=== PATIENT | male | born 1995 | race Caucasian/White ===

== ENCOUNTER 2018-03-29 16:15 | Emergency (ER) | payer OTHER ==
--- NOTE | 2018-03-29 17:33 | XRAY Report ---
Reason: right foot injury Procedure Date: 03/29/2018 Accession Number: [id number] / [id number] Procedure: XR - Foot 3 View RT CPT Code: FULL RESULT: EXAM: RIGHT FOOT RADIOGRAPHY EXAM DATE: 03/29/2018 04:53 PM. CLINICAL HISTORY: Lateral foot and ankle pain COMPARISON: None. TECHNIQUE: 3 views. FINDINGS: Bones: Normal. No fractures or bone lesions. Joints: Normal. No subluxations. Soft Tissues: Normal. No soft tissue swelling. IMPRESSION: No fracture or subluxation. RADIA
--- NOTE | 2018-03-29 17:35 | XRAY Report ---
Reason: right ankle pain Procedure Date: 03/29/2018 Accession Number: [id number] / [id number] Procedure: XR - Ankle 3 View RT CPT Code: FULL RESULT: EXAM: RIGHT ANKLE RADIOGRAPHY EXAM DATE: 03/29/2018 04:53 PM. CLINICAL HISTORY: Injury with lateral ankle pain COMPARISON: None. TECHNIQUE: 3 views. FINDINGS: Bones: Normal. No fractures or bone lesions. Joints: Normal. No effusion. No subluxations. The ankle mortise is normally aligned. Soft Tissues: There is very mild ossification of the inferior Achilles tendon. IMPRESSION: No fracture or subluxation. RADIA
--- NOTE | 2018-03-29 18:13 | ED Physician Documentation ---
PD HPI LOWER EXT INJURY - Stated complaint Stated Complaint: R ANKLE PX/INJ - Chief complaint Chief Complaint: Ext Problem - History of Present Illness PD HPI LOW EXT INJURY LOCATION: Right, Ankle Type of injury: Twist Timing - onset: Today Timing - details: Abrupt onset, Still present Improved by: Rest Worsened by: Palpating, Other (walking) Associated symptoms: Swelling. No: Weakness, Numbness Similar symptoms before: Has not had sx before Recently seen: Not recently seen Review of Systems Nose: denies: Rhinorrhea / runny nose, Congestion Throat: denies: Sore throat Respiratory: denies: Cough GI: denies: Vomiting, Diarrhea Skin: denies: Rash, Lesions Neurologic: denies: Focal weakness, Numbness PD PAST MEDICAL HISTORY - Past Medical History Cardiovascular: None Respiratory: None Neuro: None Musculoskeletal: None - Present Medications Home Medications: Ambulatory Orders Medication Instructions Recorded Confirmed No Known Home Medications [No 03/29/18 03/29/18 Known Home Medications] - Allergies Allergies/Adverse Reactions: Allergies Allergy/AdvReac Type Severity Reaction Status Date / Time No Known Drug Allergies Allergy Verified 03/29/18 16:43 PD ED PE NORMAL - Vitals Vital signs reviewed: Yes - General General: Alert and oriented X 3, No acute distress, Well developed/nourished - Derm Derm: Normal color, Warm and dry - Extremities Extremities: Other (right ankle with tenderness and some swelling anterolaterally. Not tender medially nor at Achilles. Foot not tender. ) - Neuro Neuro: Alert and oriented X 3, No motor deficit, No sensory deficit, Normal speech Results - Vitals Vitals: Oxygen O2 Source Room air - Rads (name of study) ankle xray Radiology: Prelim report reviewed, EMP read contemporaneously (no fractures) PD MEDICAL DECISION MAKING - ED course Complexity details: reviewed results (xray is negative. Will need to be able to get by without work boot and use aircast for week or so. ), considered differential, d/w patient - Sepsis Event Vital Signs: Oxygen O2 Source Room air Departure - Departure Disposition: 01 Home, Self Care Clinical Impression: Right ankle sprain Qualifiers: Encounter type: initial encounter Involved ligament of ankle: anterior talofibular ligament Qualified Code(s): S93.491A - Sprain of other ligament of right ankle, initial encounter Record reviewed to determine appropriate education?: Yes Instructions: ED Sprain Ankle Follow-Up: YAZMIN Dobbs [Provider Group] Comments: Weightbearing as able for the first couple of days and progress weightbearing as after that. Use the ankle brace when up and around for the next 1-2 weeks with a normal shoe as it will not fit in your boot. This provides ankle support to allow best healing of the ankle sprain. Tylenol ibuprofen if needed for pains. Rest ice and elevate your ankle tonight. Follow-up with your primary care if not improved over the next week. Forms: Activity restrictions Discharge Date/Time: 03/29/18 19:05
[2018-03-29] MEDS ORDERED: IBUPROFEN 600 MG TABLET PO STA (18:34)
[2018-03-29 19:06] VITALS: BP 142/92
== END 2018-03-29 19:05 | disposition home or self-care (01) ==
LOC: ED 16:15
DX: S93.491A Sprain of other ligament of right ankle, initial encounter (principal); X50.9XXA Other and unspecified overexertion or strenuous movements or postures, initial encounter
CPT/HCPCS: 73610; 73630; 99283; A9270